=== PATIENT | male | born 2000 | race Caucasian/White ===

== ENCOUNTER 2018-09-23 09:35 | Outpatient (CLI) | payer OTHER ==
[2018-09-23 10:35] VITALS: BP 100/60
--- NOTE | 2018-09-23 10:35 | SLEEP CARE CONSULTATION ---
Information from patient questionnaire entered by Noemí Hall. I have reviewed and concur with the information entered by Noemí Hall. This document represents the service I personally performed and the decisions made by me, Jose R Fox MD, [facility]. History of Present Illness Reason for Visit: New patient Chief Complaint: reports: Insomnia Duration of Symptoms: COUPLE MONTHS Usual bedtime: 11:00PM Time it takes to fall asleep: UNKNOWN Snores at night: No Observed to quit breathing while asleep: No Sleeps alone due to snoring: No Number of times waking at night: 1 Reasons for waking at night: reports: Other Toss, Turn, or Twitch while sleeping: Yes Recalls having dreams: Yes Feels refreshed in the morning: No Morning headache: Yes (SOMETIMES) Sleepy or fatigued during the day: Yes Ever fallen asleep while driving: No Takes day naps: Yes Dreams during day naps: Yes Prior sleep studies: No Additional HPI information: He complains of feeling fatigue and insomnia at the beginning of the night. It usually takes him 2 - 3 hours to fall asleep. He takes trazodone which helps him to fall asleep in a few minutes. He takes the medication at 10:30 pm and turns off the light at 11 pm. He gets up at 6 - 7 am with an alarm clock. He snoozes it 4 times. Without the alarm clock he gets up around noon on weekends. - Parasomnia Symptoms Walks in sleep: No Talks in sleep: No Ever acted out dreams in sleep: No Problems with memory or concentration: Yes Subjective Initial Deming Sleepiness Scale score: 11 Past Medical History Past Medical History: reports: Anxiety, Depression, Mood disorder, Other (PTSD, SCHIZOPHRENIC TENDANCIES) Social History The patient's occupation is a [employer]. Patient is Single and lives in . Have you smoked in the past 12 months: No Alcohol use: No Caffeine use: Yes Caffeine amount and frequency: 1-2 CUPS/DAY Family History Family history of sleep disordered breathing: Yes Family Hx Sleep Apnea: Father: Snoring Allergies and Home Medications Allergy and home medication list: Medications: prazosin, trazodone, and vitamin D. Review of Systems Weight gain over past 5 years: 50 Weight loss over past 5 years: 30 Cardiovascular: reports: chest pain Respiratory: denies: shortness of breath, wheeze, sputum production, chronic cough, other Gastrointestinal: denies: heartburn, difficulty swallowing, nausea, vomitting, diarrhea, abdominal pain, other Urinary: denies: incontinence, frequency, urgency, impotence, other Neurological: denies: headaches, seizure, head trauma, disorientation, speech dysfunction, gait or balance problems, fainting or unconsciousness, other Psychiatric: reports: anxiety, depression, mood disorder Ear/Nose/Throat: denies: nasal congestion, sinus problems, nose bleeds, dry mouth/throat, hoarseness, injury to nose, tonsillectomy, wisdom teeth removed, other Endocrine: reports: sluggishness Musculoskeletal: denies: joint pain, neck pain, back pain, joint swelling, muscle pain or cramping, mobility problems, other Immunologic: denies: sneezing, rash, itching, allergies to food or environment, other Physical Exam Vital signs obtained and entered by: Dr. Fox Blood Pressure: 100/60 Cuff size: regular Heart Rate: 88 O2 Saturation: 98 Neck circumference: 15 Mood/affect: Normal HEENT: No craniofacial malformation Nostrils: patent to airflow Turbinates: normal Septum: midline Mouth and throat: normal Soft palate: normal Hard palate: normal Uvula: normal Uvula visualization: 100% Mallampati Class I Tongue: normal in size Tonsils: small Chin and jaw: normal size and position Neck: normal w/o lymphadenopathy or thyromegaly Heart: regular rate and rhythm Lungs: clear bilaterally Abdomen: soft, non-tender Extremities: no edema or clubbing Neurologic: intact, no focal deficits Impression and Plan 1. Delayed sleep phase syndrome, causing sleep onset insomnia on week nights and insufficient sleep. His own circadian rhythm is that of going to bed after midnight and waking up near 11 am. The only solution is for him to get up consistently no later than 8 am. We will perform a sleep study to rule out sleep disrupting conditions such as sleep-disordered breathing, periodic leg movement of sleep, etc. I informed the patient of what the sleep studies involve and after some discussion, he agreed to proceed. Plan: 1. Maintain a regular wake up time and spend no more than 8 hours in bed at night. Avoid naps. 2. Wake up no later than 8 am on the weekends. 3. Schedule an in-laboratory polysomnography 4. Return for follow up after the sleep study. I spent 100% of this 15 minute visit face to face with the patient with greater than 50% of this was spent time counseling the patient and coordination of care.
== END 2018-09-23 09:36 | disposition home or self-care (01) ==
LOC: SC 09:35
PROVIDERS: ATTEND Internal Medicine Pulmonary Disease
DX: G47.21 Circadian rhythm sleep disorder, delayed sleep phase type (principal); G47.00 Insomnia, unspecified
CPT/HCPCS: 99203; 99212

== ENCOUNTER 2018-09-26 09:33 | Emergency (ER) | payer OTHER ==
[2018-09-26 09:47] VITALS: BP 144/78
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
[2018-09-26] MEDS ORDERED: BACITRACIN OINT TOP ONE (11:01)
== END 2018-09-26 11:01 | disposition home or self-care (01) ==
LOC: ED 09:33
DX: S30.810A Abrasion of lower back and pelvis, initial encounter (principal); S70.11XA Contusion of right thigh, initial encounter; V19.3XXA Pedal cyclist (driver) (passenger) injured in unspecified nontraffic accident, initial encounter
CPT/HCPCS: 99282; A9270

== ENCOUNTER → 2018-09-27 | Outpatient (CLI) | payer OTHER | LOC: SC 20:30 | PROVIDERS: ATTEND Internal Medicine Pulmonary Disease | DX: G47.61 Periodic limb movement disorder (principal) | CPT/HCPCS: 95810 ==

== ENCOUNTER 2018-12-26 21:57 | Emergency (ER) | payer OTHER ==
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
[2018-12-26 22:35] LABS: BASOPHILS # (AUTO) 0.1 10^3/uL (0.0-0.1); BASOPHILS % (AUTO) 0.7 %; EOSINOPHILS # (AUTO) 0.1 10^3/uL (0.0-0.7); EOSINOPHILS % (AUTO) 1.3 %; HGB - HEMOGLOBIN 14.4 g/dL (14.0-18.0); LYMPHOCYTES # (AUTO) 2.5 10^3/uL (1.5-3.5); LYMPHOCYTES % (AUTO) 32.6 %; MEAN CORPUSCULAR HEMOGLOBIN 28.6 pg (27.0-31.0); MEAN CORPUSCULAR HGB CONC 33.6 g/dL (32.0-36.0); MEAN CORPUSCULAR VOLUME 85.1 fL (80.0-94.0); MEAN PLATELET VOLUME 8.6 fL (7.4-11.4); MONOCYTES # (AUTO) 0.5 10^3/uL (0.0-1.0); MONOCYTES % (AUTO) 6.9 %; NEUTROPHILS # (AUTO) 4.5 10^3/uL (1.5-6.6); NEUTROPHILS % (AUTO) 57.8 %; PLT - PLATELET COUNT 293 10^3/uL (130-450); RED BLOOD COUNT 5.03 10^6/uL (4.70-6.10); RED CELL DISTRIBUTION WIDTH 12.5 % (12.0-15.0); WHITE BLOOD COUNT 7.7 x10^3/uL (4.8-10.8)
[2018-12-26 22:51] LABS: ACETAMINOPHEN < 10 ug/mL (10-30); ALBUMIN 4.8 g/dL (3.2-5.5); ALBUMIN/GLOBULIN RATIO 1.5 (1.0-2.2); ALKALINE PHOSPHATASE 80 IU/L (42-121); ALT ALANINE AMINOTRANSFERASE 55 IU/L (10-60); AST ASPARTATE AMINOTRANSFERASE 33 IU/L (10-42); BILIRUBIN,TOTAL 0.5 mg/dL (0.2-1.0); GFR - MDRD 95 (>89); GLUCOSE 98 mg/dL (70-100); LIPASE 31 U/L (22-51); TOTAL PROTEIN 8.1 g/dL (6.7-8.2)
[2018-12-26 22:58] LABS: CALCIUM 9.8 mg/dL (8.5-10.3); CARBON DIOXIDE - CO2 27 mmol/L (21-32); CHLORIDE 103 mmol/L (101-111); SODIUM 139 mmol/L (135-145)
[2018-12-26 23:02] LABS: MUDS CUTOFF CONCENTRATIONS CUTOFF CONC BELOW:
[2018-12-26 23:03] LABS: BILIRUBIN,URINE NEGATIVE (NEGATIVE); GLUCOSE, URINE (UA) NEGATIVE (NEGATIVE); KETONES,URINE (UA) NEGATIVE (NEGATIVE); LEUKOCYTE ESTERASE, URINE NEGATIVE (NEGATIVE); NITRITE,URINE NEGATIVE (NEGATIVE); OCCULT BLOOD,URINE NEGATIVE (NEGATIVE); PROTEIN,URINE NEGATIVE (NEGATIVE); UROBILINOGEN,URINE 0.2 (NORMAL) E.U./dL (NORMAL)
[2018-12-26] MEDS ORDERED: LORazepam 0.5 MG TABLET PO STA (23:04)
[2018-12-26 23:05] LABS: CLARITY,URINE CLEAR (CLEAR)
[2018-12-26 23:13] LABS: BUN - BLOOD UREA NITROGEN 10 mg/dL (6-20); SALICYLATE < 6.0 mg/dL
[2018-12-26 23:13] LABS: AMPHETAMINE SCREEN,URINE NEGATIVE (NEGATIVE); BENZODIAZEPINES SCREEN, URINE NEGATIVE (NEGATIVE); COCAINE SCREEN URINE NEGATIVE (NEGATIVE); METHADONE SCREEN, URINE NEGATIVE (NEGATIVE); METHAMPHETAMINES SCREEN, URINE NEGATIVE (NEGATIVE); OPIATE SCREEN, URINE NEGATIVE (NEGATIVE); OXYCODONE SCREEN, URINE NEGATIVE (NEGATIVE); PROPOXYPHENE SCREEN, URINE NEGATIVE (NEGATIVE); TRICYCLIC ANTIDEPRESSANT,URINE NEGATIVE (NEGATIVE)
[2018-12-27] MEDS ORDERED: LORazepam 0.5 MG TABLET PO STA (00:41)
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
--- NOTE | 2018-12-27 10:13 | ED Physician Documentation ---
ED Addendum - Addendum Addendum: 12/27/18 10:12 Patient accepted to [facility], Dr. Ge Mccord 1010. COBRA forms completed. Patient stable for transfer This document was made in part using voice recognition software. While efforts are made to proofread this document, sound alike and grammatical errors may occur. 12/27/18 10:13 Departure - Departure Disposition: 65 Psych Hosp/Unit DC/Xfer Clinical Impression: Bipolar affective disorder Qualifiers: Active/Remission status: currently active Current bipolar episode type: mixed Current episode severity: unspecified Qualified Code(s): F31.60 - Bipolar disorder, current episode mixed, unspecified Condition: Stable
[2018-12-27 12:30] VITALS: BP 138/93
== END 2018-12-27 13:02 ==
LOC: EDUNIT# → EDBD → ED 21:57
DX: F31.2 Bipolar disorder, current episode manic severe with psychotic features (principal); F41.9 Anxiety disorder, unspecified; R45.851 Suicidal ideations; R45.850 Homicidal ideations; F43.10 Post-traumatic stress disorder, unspecified
CPT/HCPCS: 36415; 80320; 80329; 81003; 83690; 99283; 99285; A9270; G0425; Q3014; 80053; 80306; 80307; 81001; 84443; 85025; 87086

== ENCOUNTER 2019-05-04 19:51 | Emergency (ER) | payer OTHER ==
--- NOTE | 2019-05-04 20:11 | ED Physician Documentation ---
History of Present Illness - Stated complaint Stated Complaint: HEAD PAIN - Chief complaint Chief Complaint: General - History obtained from History obtained from: Patient - History of Present Illness Timing: Today (Healthy gentleman about an hour ago was opening a garage door and it broke and the door fell on his head and face. He complains of moderate headache and right-sided jaw pain but declines pain medication. Mild dizziness 2. No nausea or loss of consciousness.) Review of Systems Constitutional: denies: Fever, Chills, Myalgias Ears: denies: Loss of hearing, Ear pain Nose: denies: Rhinorrhea / runny nose, Congestion, Epistaxis PD PAST MEDICAL HISTORY - Past Medical History Psych: Depression, Anxiety, Post traumatic stress disorder - Past Surgical History Past Surgical History: No - Present Medications Home Medications: Ambulatory Orders Medication Instructions Recorded Confirmed Rizosin 0 mg 09/26/18 - Allergies Allergies/Adverse Reactions: Allergies Allergy/AdvReac Type Severity Reaction Status Date / Time No Known Drug Allergies Allergy Verified 12/26/18 22:23 - Social History Does the pt smoke?: No Smoking Status: Never smoker Does the pt drink ETOH?: No Does the pt have substance abuse?: No - Immunizations Immunizations are current?: Yes - POLST Patient has POLST: No PD ED PE NORMAL - Vitals Vital signs reviewed: Yes - General General: Alert and oriented X 3, No acute distress - HEENT HEENT: PERRL, EOMI, Other (Mild tenderness of the right side of the jaw without limited range of motion but hurts to close the jaw. 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, No motor deficit, No sensory deficit, Normal speech Eye Opening: Spontaneous Motor: Obeys Commands Verbal: Oriented GCS Score: 15 - Psych Psych: Normal mood, Normal affect Results - Vitals Vitals: Vital Signs - 24 hr 05/04/19 05/04/19 05/04/19 19:59 20:02 21:02 Temperature 36.5 C Heart Rate 76 70 75 Respiratory 16 16 16 Rate Blood Pressure 134/86 H 128/78 132/75 H O2 Saturation 98 99 100 Oxygen O2 Source Room air - Rads (name of study) CT head and face bones Radiology: EMP read contemporaneously (Both normal) Departure - Departure Disposition: 01 Home, Self Care Clinical Impression: Head injury Qualifiers: Encounter type: initial encounter Qualified Code(s): S09.90XA - Unspecified injury of head, initial encounter Contusion of mandibular joint area Qualifiers: Encounter type: initial encounter Qualified Code(s): S00.83XA - Contusion of other part of head, initial encounter Condition: Good Record reviewed to determine appropriate education?: Yes Instructions: ED Head Injury Closed Comments: Tylenol or ibuprofen as needed for pain, return for new or worsening symptoms. Follow-up with your doctor as needed.
--- NOTE | 2019-05-04 20:55 | CT Report ---
Reason: head/face injury Procedure Date: 05/04/2019 Accession Number: [id number] / [id number] Procedure: CT - HEAD WO CPT Code: Final Report FULL RESULT: EXAM: CT HEAD EXAM DATE: 05/04/2019 08:36 PM. CLINICAL HISTORY: Head/face injury. COMPARISON: None. TECHNIQUE: Multiaxial CT images were obtained from the foramen magnum to the vertex. Reformats: Sagittal and coronal. IV contrast: None. In accordance with CT protocol optimization, one or more of the following dose reduction techniques were utilized for this exam: automated exposure control, adjustment of mA and/or KV based on patient size, or use of iterative reconstructive technique. FINDINGS: Parenchyma: No intraparenchymal hemorrhage. No evidence of mass, midline shift, or CT findings of infarction. Nicole-white differentiation is distinct. Extraaxial Spaces: Normal for age. No subdural or epidural collections identified. Ventricles: Normal in size and position. Sinuses and Orbits: Imaged paranasal sinuses, orbits, and mastoids show no significant abnormality. Bones: No evidence of fracture or calvarial defect. Other: None. IMPRESSION: No CT evidence of acute intracranial abnormality, specifically no CT evidence of acute infarct, intracranial hemorrhage, mass effect, midline shift, or hydrocephalus. [facility]
--- NOTE | 2019-05-04 21:13 | CT Report ---
Reason: head/face injury Procedure Date: 05/04/2019 Accession Number: [id number] / [id number] Procedure: CT - MAXILLOFACIAL WO CPT Code: Final Report FULL RESULT: EXAM: CT MAXILLOFACIAL WITHOUT CONTRAST EXAM DATE: 05/04/2019 08:37 PM. CLINICAL HISTORY: Head/face injury. COMPARISONS: None. TECHNIQUE: Thin-section axial images were acquired of the face without contrast. Post-processing: Coronal and sagittal reformats. Other: None. In accordance with CT protocol optimization, one or more of the following dose reduction techniques were utilized for this exam: automated exposure control, adjustment of mA and/or KV based on patient size, or use of iterative reconstructive technique. FINDINGS: Soft Tissue: The infratemporal fossa and parapharyngeal spaces are unremarkable. Orbits: Symmetric and unremarkable. Bones: No fracture or bone lesion. Temporomandibular Joints: The temporomandibular joints are symmetric and normally located. Sinuses: Mild bilateral maxillary sinus mucosal thickening. There is a 1.8 cm left maxillary sinus mucous retention cyst. Other: None. IMPRESSION: No maxillofacial bone fracture. [facility]
[2019-05-04 21:22] VITALS: BP 129/79
== END 2019-05-04 21:23 | disposition home or self-care (01) ==
LOC: ED 19:51
DX: S00.81XA Abrasion of other part of head, initial encounter (principal); S09.90XA Unspecified injury of head, initial encounter; S00.83XA Contusion of other part of head, initial encounter; W20.8XXA Other cause of strike by thrown, projected or falling object, initial encounter; Y93.89 Activity, other specified
CPT/HCPCS: 70450; 70486; 99283; 99284